=== PATIENT | female | born 1960 | race Caucasian/White ===

== ENCOUNTER 2021-07-12 09:49 | Emergency (ER) | payer OTHER ==
[2021-07-12 10:01] VITALS: BP 104/74
[2021-07-12] MEDS ORDERED: Kenalog-40 IM ONE (10:11)
[2021-07-12] MEDS ORDERED: Kenalog-40 ONE (10:13)
--- NOTE | 2021-07-12 10:17 | ERPHSYRPT ---
- History of Present Illness Time Seen by Provider: 07/12/21 09:58 Source: patient Exam Limitations: no limitations Patient Subjective Stated Complaint: pt here for congestion, ear ache drainage from ears, sore throat for 2 months now Triage Nursing Assessment: pt alert, resp easy, skin w/d/p. no edema noted, face mask in place Physician History: 60 years old female presented to the ER with chief complaint of sore throat, sinus congestion, facial pain and bilateral earache with minimal clear discharge at times. Patient reports this has been going on for the last couple of months and lately is having worsening of sore throat making it difficult to swallow solid food. No fever or chills reported. Does have history of sinus issues in the past. No cough or shortness of breath reported. Timing/Duration: gradual onset, weeks Severity: moderate ENT Location: ear (R), ear (L), throat, facial Prearrival Treatment: over the counter meds Modifying Factors: Improves With: nothing Associated Symptoms: ear pain (R), ear pain (L), ear drainage, facial pain/swelling, nasal congestion/drainage, sinus infection, sore throat, No fever, No chills Allergies/Adverse Reactions: No Known Drug Allergies Allergy (Unverified 07/12/21 10:01) Home Medications: Dextroamphetamine/Amphetamine [Adderall 10 mg Tablet] 1 ea DAILY 07/12/21 [History] Topiramate 2 ea DAILY 07/12/21 [History] Hx Influenza Vaccination/Date Given: No Hx Pneumococcal Vaccination/Date Given: No Immunizations Up to Date: No Travel Risk - International Travel Have you traveled outside of the country in past 3 weeks: No - Coronavirus Screening Are you exhibiting any of the following symptoms?: No Close contact with a COVID-19 positive Pt in past 14-21 Days: No - Vaccine Status Have you recieved a Covid-19 vaccination: No - Review of Systems Constitutional: No Symptoms Eyes: No Symptoms Ears, Nose, & Throat: Nose Congestion, Sinus Drainage, Throat Pain, Throat Swelling Respiratory: No Symptoms Cardiac: No Symptoms Abdominal/Gastrointestinal: No Symptoms Genitourinary Symptoms: No Symptoms Musculoskeletal: No Symptoms Neurological: No Symptoms Psychological: Anxiety Endocrine: No Symptoms Hematologic/Lymphatic: No Symptoms Immunological/Allergic: No Symptoms - Past Medical History Pertinent Past Medical History: Yes Neurological History: No Pertinent History ENT History: No Pertinent History Cardiac History: No Pertinent History Respiratory History: No Pertinent History Endocrine Medical History: Hypothyroidism Musculoskeletal History: No Pertinent History GI Medical History: Hepatitis, Irritable Bowel History: No Pertinent History Psycho-Social History: Depression Female Reproductive Disorders: No Pertinent History Other Medical History: hepatitis as a child - Past Surgical History Past Surgical History: Yes Neuro Surgical History: No Pertinent History Cardiac: No Pertinent History Respiratory: No Pertinent History Gastrointestinal: No Pertinent History Genitourinary: No Pertinent History Musculoskeletal: No Pertinent History Female Surgical History: Tubal Ligation - Social History Smoking Status: Current every day smoker How long have you smoked: 15 Exposure to second hand smoke: Yes Drug Use: none Patient Lives Alone: Yes - Female History Hx Last Menstrual Period: post Hx Now: No - Nursing Vital Signs Nursing Vital Signs: Initial Vital Signs Temperature 97.0 F 07/12/21 09:56 Pulse Rate 87 07/12/21 09:56 Respiratory Rate 18 07/12/21 09:56 Blood Pressure 104/74 07/12/21 09:56 O2 Sat by Pulse Oximetry 98 07/12/21 09:56 Pain Scale Pain Intensity 8 - Physical Exam General Appearance: no apparent distress, alert, anxiety Eye Exam: bilateral eye: normal inspection, PERRL, EOMI Ear Exam: bilateral ear: auricle normal, TM normal, other (Bilateral mild canal erythema) Nasal Exam: normal inspection, sinus tenderness (Bilateral maxillary) Throat Exam: moist mucus membranes, pharynx swelling, pharynx tenderness, uvula swelling Neck Exam: normal inspection, non-tender, full range of motion, lymphadenopathy (R), lymphadenopathy (L) Cardiovascular/Respiratory Exam: normal breath sounds, regular rate/rhythm Neurologic Exam: alert, oriented x 3, cooperative Skin Exam: normal color SpO2 Interpretation: normal SpO2: 98 O2 Delivery: Room Air - Progress Progress: unchanged Progress Note: 07/12/21 10:15 She is given Kenalog shot and started on Augmentin, recommended outpatient follow-up. Recommend topical steroid like Flonase. Discussed signs symptoms of worsening needing return to ER which he seems understanding. Counseled pt/family regarding: lab results, diagnosis, need for follow-up - Departure Departure Disposition: Home Clinical Impression: Sinusitis Qualifiers: Sinusitis location: maxillary Chronicity: acute Recurrence: not specified as recurrent Qualified Code(s): J01.00 - Acute maxillary sinusitis, unspecified Condition: Stable Critical Care Time: No Referrals: CORBY HUGHES MD [Primary Care Provider] - Follow Up with PCP/3 days Instructions: Sore Throat, Adult (DC), Sinusitis, Adult (DC) Additional Instructions: Use warm salt water gargles. Take Tylenol as needed for aches and pains. Continue with antibiotics. Use Flonase daily. Follow-up with your primary care physician for reevaluation. Return to ER for worsening Prescriptions: Amoxicillin/Potassium Clav [Augmentin 875-125 Tablet] 875 mg PO BID 7 Days #20 tablet Fluticasone Propionate [Flonase NASAL] 16 gm NS DAILY #1
[2021-07-12 10:25] VITALS: PULSE 80; O2SAT 99
== END 2021-07-12 10:30 | disposition home or self-care (01) ==
LOC: ED 09:49
DX: J01.00 Acute maxillary sinusitis, unspecified (principal)
CPT/HCPCS: 87651; 96372; 99283; J3301